=== PATIENT | female | born 1955 | race Caucasian/White ===

== ENCOUNTER 2023-03-06 09:31 | Day surgery (SDC) | payer MEDICARE, BC ==
[~2023-03-06 09:31] MED LIST: Dexmedetomidine 200 MCG/2 ML SDV ONE; Lactated Ringers 1,000 ML IV SCH; fentaNYL 100 MCG/2 ML SDV ONE; propofoL 0 ML ONE
[2023-03-06] MEDS ORDERED: Naloxone 0.4 MG/ML SDV IVPUSH PRN (09:54)
[2023-03-06] MEDS ORDERED: Albuterol 0.083% 2.5 MG/3 ML Neb Soln NEB PRN (09:54)
[2023-03-06] MEDS ORDERED: fentaNYL 50 MCG/ML SDV IVPUSH PRN (09:54)
[2023-03-06] MEDS ORDERED: droPERidol 5 MG/2 ML SDV IVPUSH PRN (09:54)
[2023-03-06] MEDS ORDERED: Ondansetron 4 MG/2 ML SDV IVPUSH PRN (09:54)
[2023-03-06] MEDS ORDERED: HYDROmorphone 1 MG/ML Syringe IVPUSH PRN (09:54)
[2023-03-06] MEDS ORDERED: Morphine 2 MG/ML SYRINGE IVPUSH PRN (09:54)
[2023-03-06] MEDS ORDERED: Metoclopramide 10 MG/2 ML SDV IVPUSH PRN (09:54)
[2023-03-06 10:09] LABS: HEMATOCRIT 42.4 % (36.0-46.0); HEMOGLOBIN 13.9 g/dL (12.0-16.0); MEAN CORPUSCULAR HEMOGLOBIN 27.5 pg (27.0-32.0); MEAN CORPUSCULAR HGB CONC 32.8 g/dL (31.0-37.0); MEAN CORPUSCULAR VOLUME 83.8 fL (80.0-98.0); MEAN PLATELET VOLUME 9.8 fL (7.40-12.00); RED BLOOD CELL COUNT 5.06 M/uL (4.30-5.90); WHITE BLOOD CELL COUNT,WBC 5.84 K/uL (4.0-11.0)
[2023-03-06] MEDS ORDERED: propofoL 50 ML ONE (10:27)
[2023-03-06] MEDS ORDERED: Propofol 200 MG/20 ML SDV ONE (10:28)
[2023-03-06] MEDS ORDERED: fentaNYL 250 MCG/5 ML SDV ONE (10:28)
[2023-03-06 10:44] LABS: ALBUMIN 3.8 g/dL (3.4-5.0); BILIRUBIN TOTAL 0.5 mg/dL (0.2-1.0); CALCIUM 9.2 mg/dL (8.5-10.1); CARBON DIOXIDE,CO2 27.3 mmol/L (21.0-32.0); CREATININE 0.9 mg/dL (0.6-1.0); EST CRCL DRUG DOSING (CG) 48.8 mL/min; POTASSIUM,K 3.7 mmol/L (3.5-5.1); PROTEIN TOTAL,TP 7.7 g/dL (6.4-8.2)
[2023-03-06 13:25] VITALS: PULSE 80
[2023-03-06 13:27] VITALS: BP 143/77
== END 2023-03-06 12:50 | disposition home or self-care (01) ==
LOC: MW.SDS 09:31
PROVIDERS: ATTEND Obstetrics & Gynecology
DX: N84.0 Polyp of corpus uteri (principal); N95.0 Postmenopausal bleeding; I10 Essential (primary) hypertension; I26.99 Other pulmonary embolism without acute cor pulmonale; E03.9 Hypothyroidism, unspecified; E66.9 Obesity, unspecified; Z68.37 Body mass index [BMI] 37.0-37.9, adult; Z79.01 Long term (current) use of anticoagulants; Z79.890 Hormone replacement therapy
CPT/HCPCS: 36415; 58558; 80053; 85027; J2704; J3010; J7120; J3490

== ENCOUNTER 2025-03-08 18:04 | Emergency (ER) | payer MEDICARE, BC ==
[2025-03-08] MEDS: Ondansetron 4 MG/2 ML SDV IVPUSH ONE (18:37)
[2025-03-08] MEDS: Sodium Chloride 0.9% 1,000 ML IV SCH (18:37)
[2025-03-08 18:46] LABS: BASOPHILS ABSOLUTE AUTO 0.04 K/uL (0.00-0.20); BASOPHILS PERCENT AUTO 0.4 % (0.0-1.0); EOSINOPHILS PERCENT AUTO 1.1 % (0.0-6.0); HEMATOCRIT 39.8 % (37.0-47.0); HEMOGLOBIN 12.8 g/dL (12.0-16.0); IMMATURE GRAN ABSOLUTE AUTO 0.04 K/uL (0.00-0.05); IMMATURE GRAN PERCENT AUTO 0.4 % (0.0-0.4); LYMPHOCYTES ABSOLUTE AUTO 1.84 K/uL (1.00-4.80); LYMPHOCYTES PERCENT AUTO 19.8 % (24.0-44.0); MEAN CORPUSCULAR HEMOGLOBIN 27.6 pg (28.0-32.0); MEAN CORPUSCULAR HGB CONC 32.2 g/dL (32.0-36.0); MEAN CORPUSCULAR VOLUME 85.8 fL (83.0-99.0); MEAN PLATELET VOLUME 9.5 fL (9.4-12.3); MONOCYTES ABSOLUTE AUTO 0.68 K/uL (0.00-0.80); MONOCYTES PERCENT AUTO 7.3 % (0.0-8.0); NEUTROPHILS ABSOLUTE AUTO 6.59 K/uL (1.80-7.70); PLATELET COUNT,PLT 337 K/uL (150-400); RED BLOOD CELL COUNT 4.64 M/uL (4.10-5.30); WHITE BLOOD CELL COUNT,WBC 9.29 K/uL (3.9-11.3)
[2025-03-08 19:20] LABS: ALANINE AMINOTRANSFERASE,ALT 23 IU/L (14-63); ALBUMIN 3.4 g/dL (3.4-5.0); ALKALINE PHOSPHATASE 66 U/L (46-116); ASPARTATE AMNIOTRANSFERASE,AST 22 IU/L (15-37); BILIRUBIN TOTAL 0.4 mg/dL (0.2-1.0); BLOOD UREA NITROGEN,BUN 11 mg/dL (7.0-18.0); CALCIUM 8.6 mg/dL (8.5-10.1); CARBON DIOXIDE,CO2 33.1 mmol/L (21.0-32.0); CHLORIDE,CL 106 mmol/L (98-107); CREATININE 0.9 mg/dL (0.6-1.0); EST CRCL DRUG DOSING (CG) 47.43 mL/min; GLUCOSE RANDOM 124 mg/dL (74-106); MAGNESIUM 1.9 mg/dL (1.8-2.4); POTASSIUM,K 3.8 mmol/L (3.5-5.1); PRO B-TYPE NATRIUR PEPT,BNPPRO 123 pg/mL (0-125); PROTEIN TOTAL,TP 6.9 g/dL (6.4-8.2); SODIUM,NA 145 mmol/L (136-145)
[2025-03-08 19:22] LABS: ESTIMATED GFR 68 mL/min (>60)
[2025-03-08 22:21] VITALS: BP 128/61; PULSE 86
== END 2025-03-08 22:19 | disposition home or self-care (01) ==
LOC: MW.ED 18:04
DX: R55 Syncope and collapse (principal); I10 Essential (primary) hypertension; E03.9 Hypothyroidism, unspecified; E66.9 Obesity, unspecified; Z79.890 Hormone replacement therapy; Z79.899 Other long term (current) drug therapy; Z68.34 Body mass index [BMI] 34.0-34.9, adult
CPT/HCPCS: 36415; 70450; 71045; 80053; 83735; 83880; 84484; 85025; 93005; 96361; 96374; 99285; J2405; J7030